=== PATIENT | male | born 1960 | race Caucasian/White ===

== ENCOUNTER 2019-02-28 12:35 | Inpatient (IN) | payer OTHER ==
[~2019-02-28] VITALS: Ht 182.9 cm; Wt 131.5 kg
--- NOTE | 2019-02-28 12:38 | NUR ---
"[id number] [facility] FOR L SIDED CHEST/CHEST WALL PAIN X 10 DAYS ASPIRIN 324MG GIVEN REGISTERED NURSE STEP DOWN" pt aaox4. -sob, nad noted,. vss, pending, md sotelo
[2019-02-28 12:48] LABS: BASOPHILS % (AUTO) 0.6 % (0.0-2.0); EOSINOPHILS % (AUTO) 2.8 % (0.0-6.0); HEMATOCRIT 42 % (39-51); HEMOGLOBIN 14.2 g/dL (13.5-17.5); LYMPHOCYTES # (AUTO) 2.2 /CMM (0.8-4.8); LYMPHOCYTES % (AUTO) 32.3 % (20.0-44.0); MEAN CORPUSCULAR HGB CONC 34 g/dl (31.0-36.0); MEAN CORPUSCULAR VOLUME 87 fL (80-96); MONOCYTES # (AUTO) 0.3 /CMM (0.1-1.30); MONOCYTES % (AUTO) 5.1 % (2.0-12.0); NEUTROPHILS # (AUTO) 3.9 /CMM (1.8-8.9); NEUTROPHILS % (AUTO) 59.2 % (43.0-81.0); PLATELET COUNT (AUTO) 231 /CMM (150-450); RED BLOOD CELL COUNT(AUTO) 4.83 MIL/uL (4.5-6.0); WHITE BLOOD COUNT (AUTO) 6.7 K/uL (4.3-11.0)
[2019-02-28 12:57] LABS: CALCIUM, SERUM 8.7 mg/dL (8.5-10.1); CARBON DIOXIDE 23 mmol/L (21-32); CHLORIDE 108 mmol/L (98-107); CREATININE 1.4 mg/dL (0.6-1.3); GLUCOSE 107 mg/dL (74-106); POTASSIUM 4.1 mmol/L (3.5-5.1); SODIUM SERUM 141 mmol/L (136-145); UREA NITROGEN, BLOOD 15 mg/dL (7-18)
[2019-02-28] MEDS ORDERED: LISI-603 PO (13:33)
[2019-02-28] MEDS ORDERED: ELVI1TAB3 PO (13:33)
[2019-02-28] MEDS ORDERED: BUPR450T3 PO (13:33)
[2019-02-28] MEDS ORDERED: LEVO25TA7 PO (13:33)
[2019-02-28] MEDS ORDERED: ATOR20TA PO (13:33)
[2019-02-28] MEDS ORDERED: PANT40TA4 PO (13:33)
--- NOTE | 2019-02-28 13:37 | NUR ---
CALLED [facility], PAGED BHARATI MANUEL
--- NOTE | 2019-02-28 13:39 | NUR ---
CALLED NURSING SUP REQUESTED TELE BED
[2019-02-28] MEDS ORDERED: NITROGLYCERIN 0.4 MG/TAB BOTTLE SL PRN (14:30)
[2019-02-28] MEDS ORDERED: MORPHINE SULFATE INJ 2 MG/ML DISP.SYRIN IV PRN (14:30)
[2019-02-28] MEDS ORDERED: MAG HYDROX/AL HYDROX/SIMETH 30 ML UDC PO PRN (14:30)
[2019-02-28] MEDS ORDERED: ONDANSETRON HCL/PF 4 MG/2 ML VIAL IVP PRN (14:30)
[2019-02-28] MEDS ORDERED: DOCUSATE SODIUM 100 MG CAPSULE PO PRN (14:30)
[2019-02-28] MEDS ORDERED: ACETAMINOPHEN 325 MG TABLET PO PRN (14:30)
[2019-02-28] MEDS ORDERED: IV NS 0.9% 500 ML IV PRN (14:30)
--- NOTE | 2019-02-28 15:42 | NUR ---
TELE1/RN REPORT FROM ER REPORT RECEIVED FROM ER NURSE BROCK FOR PT TO BE ADMITTED FOR CHEST PAIN UNDER THE CARE OF Karson RODRIGUEZ AWAITING FOR PT'S ARRIVAL.
--- NOTE | 2019-02-28 15:56 | NUR ---
report given to nba kay for constance pt will be transported to 1st floor
[2019-02-28 16:00] VITALS: BP 110/64
--- NOTE | 2019-02-28 16:00 | NUR ---
TELE1/ELECTROPLATING LABORER TO TELE1 - ROOM 113#1 PT ARRIVED VIA GURNEY, WALKED TO HOSPITAL BED WITH STEADY GAIT. PT A/O X 4, DENIES ANY SYMPTOMS INCLUDING CHEST PAIN. ON ROOM AIR SATURATING @ 95%, RESPIRATIONS EVEN & UNLABORED, LUNG SOUNDS CLEAR. TELE BOX PLACED, SINUS RHYTHM, HR 78. IV SITE FLUSHED, PATENT WITH NO S/S OF INFECTION. ADMITTING PROTOCOLS IN PROGRESS, PT IS BEING SEEN BY DR. SEN. CL WITHIN REACHED AND SAFETY MAINTAINED. ON GOING MONITORING.
--- NOTE | 2019-02-28 16:00 | NUR ---
TELE1/RN ROUNDS - DR. SEN PT SEEN & EXAMINED BY DR. SEN, NO NEW ORDERS RECEIVED AT THIS TIME.
--- NOTE | 2019-02-28 19:00 | NUR ---
TELE1/RN AM SHIFT END NOTES NO ACUTE CHANGE ON CONDITION NOTED SINCE PT WAS ADMITTED LATE THIS AFTERNOON. ALL NEEDS MET. PLAN OF CARE EXPLAINED TO PT, VERBALIZED UNDERSTANDING. PT ENDORSED TO PM NURSE TO CONTINUE CARE. CL WITHIN REACHED AND SAFETY MAINTAINED.
--- NOTE | 2019-02-28 19:30 | NUR ---
SANITATION SUPERVISOR NOTE: RECEIVED PT ON BED ALERT AND ORIENTED X4. FAMILY AT BEDSIDE. NO APPARENT DISTRESS NOTED. DENIES PAIN AND DISCOMFORT AT THIS TIME. ON ROOM AIR, SATURATING WELL. NO SOB NOTED. ON TELE MONITOR SINUS RHYTHM HR 69BPM. LEFT FOREARM #20 INTACT AND PATENT, IVF INFUSING WELL. NO SIGNS/SYMPTOMS OF INFILTRATION NOTED. KEPT CLEAN, DRY AND COMFORTABLE. CALL LIGHT PLACED WITHIN REACH. SAFETY AND FALL PRECAUTIONS OBSERVED AND MAINTAINED. WILL CONTINUE TO MONITOR PT.
[2019-02-28 19:58] VITALS: BP 113/60
[2019-02-28 20:00] VITALS: BP 113/60
--- NOTE | 2019-02-28 22:14 | NUR ---
PT PLACED ON NOC CPAP PER MD ORDER. CPAP TITRATED TO PT COMFORT. FIO2 30% cpap 10 Addendum: 02/28/19 at 2217 by JOVANNY CHOWDHURY Amended: Links added.
[2019-02-28 23:56] VITALS: BP 112/58
[2019-03-01] VITALS: BP 112/58
[2019-03-01 04:00] VITALS: BP 118/60
--- NOTE | 2019-03-01 04:12 | NUR ---
pt removed bipap due to discomfort with face mask. pt refusing bipap at this time Addendum: 03/01/19 at 0412 by JOVANNY CHOWDHURY Amended: Links added.
[2019-03-01 04:14] LABS: BASOPHILS % (AUTO) 0.8 % (0.0-2.0); EOSINOPHILS % (AUTO) 3.1 % (0.0-6.0); HEMATOCRIT 40 % (39-51); HEMOGLOBIN 13.4 g/dL (13.5-17.5); LYMPHOCYTES # (AUTO) 2.3 /CMM (0.8-4.8); LYMPHOCYTES % (AUTO) 38.4 % (20.0-44.0); MEAN CORPUSCULAR HGB CONC 34 g/dl (31.0-36.0); MEAN CORPUSCULAR VOLUME 87 fL (80-96); MONOCYTES # (AUTO) 0.4 /CMM (0.1-1.30); MONOCYTES % (AUTO) 6.6 % (2.0-12.0); NEUTROPHILS # (AUTO) 3.1 /CMM (1.8-8.9); NEUTROPHILS % (AUTO) 51.1 % (43.0-81.0); PLATELET COUNT (AUTO) 188 /CMM (150-450); RED BLOOD CELL COUNT(AUTO) 4.57 MIL/uL (4.5-6.0)
[2019-03-01 04:30] LABS: ALBUMIN 3.3 g/dL (3.4-5.0); BILIRUBIN,TOTAL 0.3 mg/dL (0.2-1.0); CALCIUM, SERUM 8.2 mg/dL (8.5-10.1); CREATININE 1.4 mg/dL (0.6-1.3); MAGNESIUM 2.1 mg/dL (1.8-2.4); PHOSPHORUS 4.6 mg/dL (2.5-4.9); POTASSIUM 3.8 mmol/L (3.5-5.1); TOTAL PROTEIN, SERUM 6.4 g/dL (6.4-8.2)
[2019-03-01 04:40] VITALS: BP 118/60
[2019-03-01 04:40] LABS: THYROID STIMULATING HORMONE 2.967 uIU/mL (0.358-3.74)
--- NOTE | 2019-03-01 06:33 | NUR ---
EDUCATION MANAGERS NOTE: NO CHANGES NOTED THROUGHOUT THE SHIFT. NO APPARENT DISTRESS NOTED. DENIES PAIN AND DISCOMFORT AT THIS TIME. ON ROOM AIR, BREATHING EVEN AND UNLABORED WITH NORMAL RESPIRATIONS. SINUS RHYTHM ON TELE MONITOR HR 62 BPM. PT KEPT NPO POST MIDNIGHT ORDERED. KEPT CLEAN, DRY AND COMFORTABLE. CALL LIGHT PLACED WITHIN REACH. ALL NEEDS ATTENDED. WILL ENDORSE TO DAY SHIFT RN FOR CONTINUITY OF CARE.
--- NOTE | 2019-03-01 07:00 | NUR ---
RN NOTE: RECEIVED PT ON BED A/Ox4, ON RA , NO SOB NOTED, KEPT NPO FOR STRESS TEST TODAY, ON TELE MONITOR SR HR IN 60'S , LEFT FOREARM #20 INTACT AND PATENT, IVF NS AT 20CC/HR RUNNING , SITE CLEAN, DRY AND INTACT, CALL LIGHT PLACED WITHIN REACH. SAFETY AND FALL PRECAUTIONS OBSERVED AND MAINTAINED. SR UP 3, CONTINUE TO MONITOR CLOSELY .
[2019-03-01 08:00] VITALS: BP 109/56
[2019-03-01] MEDS ORDERED: [UNRECOGNIZED DRUG - OTHER] PO SCH (09:00)
[2019-03-01] MEDS ORDERED: PANTOPRAZOLE 40 MG TABLET.DR PO SCH (09:00)
[2019-03-01] MEDS ORDERED: ATORVASTATIN 10 MG TABLET PO SCH (09:00)
[2019-03-01] MEDS ORDERED: REGADENOSON 0.4 MG/5 ML DISP.SYRIN IVP ONE (09:00)
[2019-03-01] MEDS ORDERED: ENOXAPARIN SODIUM 40 MG/0.4 ML DISP.SYRIN SQ SCH (09:00)
[2019-03-01] MEDS ORDERED: LISINOPRIL (20MG) 20 MG TABLET PO SCH (09:00)
[2019-03-01] MEDS ORDERED: ASPIRIN 81 MG TAB.CHEW PO SCH (09:00)
[2019-03-01] MEDS ORDERED: BUPROPION XL 150 MG TAB.ER.24 PO SCH (09:00)
[2019-03-01] MEDS ORDERED: LEVOTHYROXINE SODIUM 25 MCG TABLET PO SCH (09:00)
[2019-03-01] MEDS ORDERED: ASPI-1169 PO (11:45)
[2019-03-01 12:00] VITALS: BP_SYST 108; BP_DIAS 49; BP_DIAS 69
[2019-03-01 14:03] LABS: APPEARANCE,URINE Clear (CLEAR); BILIRUBIN,URINE Negative (NEGATIVE); BLOOD, URINE Negative Ery/uL (NEGATIVE); COLOR,URINE Yellow (YELLOW); KETONES,URINE Negative (NEGATIVE); LEUKOCYTE ESTERASE ,URINE Negative (NEGATIVE); NITRITE, URINE Negative (NEGATIVE); PH,URINE 5.5 (5.0-8.0); PROTEIN,URINE Negative (NEGATIVE); UGLUCOSE Negative (NEGATIVE); UROBILINOGEN,URINE 0.2 EU/dL (0.2)
--- NOTE | 2019-03-01 14:15 | NUR ---
RN NOTES IV SITE D/OMID, PT CAN GO HOME PER DR HUERTA AND DR PEREZ AND LABORATORY DIRECTOR, PT MARK ANY DISTRESS, DISCHARGE INSTRUCTIONS GIVEN , PT VERBALIZES UNDERSTANDING, PT LEFT THE FLOOR AMBULATORY TO MAIN ENTRANCE IN STABLE CONDITION . PT LEFT HIS CELL PHONE SALESPERSON SEWING MACHINES , LEFT A PHONE MESSAGE FOR PT TO COME BACK AND GET HIS CELL PHONE SALESPERSON SEWING MACHINES.
[2019-03-01 16:05] LABS: EOSINOPHIL,URINE None Seen
[2019-03-01 16:26] LABS: CREATININE, URINE 32.3 MG/DL (30.0-125.0); URINE SODIUM, RANDOM 29 mmol/l (40-220); URINE TOTAL PROTEIN < 6.0 mg/dL (0-11.9)
== END 2019-03-01 14:15 | disposition home or self-care (01) | DRG 313 ==
LOC: ER 12:37 → TELE1 15:35
PROVIDERS: ADMIT Registered Nurse; ATTEND Student in an Organized Health Care Education/Training Program
DX: R07.89 Other chest pain (principal); B20 Human immunodeficiency virus [HIV] disease; N13.8 Other obstructive and reflux uropathy; N17.9 Acute kidney failure, unspecified; I25.10 Atherosclerotic heart disease of native coronary artery without angina pectoris; E03.9 Hypothyroidism, unspecified; K21.9 Gastro-esophageal reflux disease without esophagitis; E78.5 Hyperlipidemia, unspecified; I12.9 Hypertensive chronic kidney disease with stage 1 through stage 4 chronic kidney disease, or unspecified chronic kidney disease; E66.01 Morbid (severe) obesity due to excess calories; N18.9 Chronic kidney disease, unspecified; N40.1 Benign prostatic hyperplasia with lower urinary tract symptoms; Z79.899 Other long term (current) drug therapy; I69.398 Other sequelae of cerebral infarction; H53.9 Unspecified visual disturbance; M19.90 Unspecified osteoarthritis, unspecified site; G47.33 Obstructive sleep apnea (adult) (pediatric); Z68.39 Body mass index [BMI] 39.0-39.9, adult
CPT/HCPCS: 36415; 71045-TC; 80048-TC; 80053-TC; 80061-TC; 81000-TC; 82570-TC; 83735-TC; 84100-TC; 84155-TC; 84300-TC; 84443-TC; 84484-TC; 85025-TC; 87081-TC; 93307-TC; A9502; G0378; J1650; J2785; J7030; J7040